=== PATIENT | male | born 1965 | race Caucasian/White ===

== ENCOUNTER 2017-03-24 19:09 | Emergency (ER) | payer BC ==
[2017-03-24 19:18] VITALS: BP 154/75
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
== END 2017-03-24 20:11 | disposition home or self-care (01) ==
LOC: UCCORT 19:09
DX: M71.9 Bursopathy, unspecified (principal); G82.20 Paraplegia, unspecified
CPT/HCPCS: 99211; G0463